=== PATIENT | male | born 1970 | race Hispanic/Latino ===

== ENCOUNTER 2024-05-04 09:14 | Emergency (ER) | payer BC ==
[~2024-05-04] VITALS: Ht 180.3 cm; Wt 98.5 kg
[2024-05-04] MEDS ORDERED: hydrALAZine 20MG/ML VIAL IM ONE (09:30)
[2024-05-04 09:44] LABS: BASOPHILS # (AUTO) 0.02 K/uL (0.00-0.20); BASOPHILS % (AUTO) 0.2 % (0.0-5.0); EOSINOPHILS # (AUTO) 0.09 K/uL (0.00-0.70); EOSINOPHILS % (AUTO) 0.8 % (0.0-8.0); IMMATURE GRANULOCYTE ABSOLUTE 0.04 K/uL (0-1); LYMPHOCYTES # (AUTO) 1.2 K/uL (1.0-4.8); LYMPHOCYTES % (AUTO) 10.1 % (21.0-51.0); MEAN CORPUSCULAR HEMOGLOBIN 28.7 pg (27.0-33.0); MEAN CORPUSCULAR HGB CONC 34.8 g/dL (32.0-36.0); MEAN CORPUSCULAR VOLUME 82.4 fL (79-99); MONOCYTES # (AUTO) 0.6 K/uL (0.1-1.0); MONOCYTES % (AUTO) 5.6 % (3.0-13.0); NEUTROPHILS # (AUTO) 9.5 K/uL (1.8-7.7); PLATELET COUNT (AUTO) 260 K/uL (130-400); RED BLOOD CELL COUNT(AUTO) 5.34 MIL/uL (4.50-6.20); WHITE BLOOD COUNT (AUTO) 11.5 K/uL (4.8-10.8)
[2024-05-04] MEDS: ondanSETRON 4MG INJ IVP ONE (09:47)
[2024-05-04] MEDS: hydrALAZine 20MG/ML VIAL IV ONE ×2 (09:48→12:52)
[2024-05-04] MEDS: ondanSETRON 4MG INJ ONE (09:48)
[2024-05-04 09:55] LABS: ALBUMIN 3.4 g/dL (3.5-5.0); BILIRUBIN,TOTAL 1.1 mg/dL (0.2-1.0); POTASSIUM 3.1 mmol/L (3.5-5.1); TOTAL PROTEIN, SERUM 7.3 g/dL (6.0-8.3)
[2024-05-04 10:13] LABS: COVID19 (SARS ANTIGEN RAPID) PRESUMPTIVE NEGATIVE (NEGATIVE); INFLUENZA TYPE A Negative For Type A (NEGATIVE); INFLUENZA TYPE B Negative For Type B (NEGATIVE)
[2024-05-04 10:14] LABS: B-TYPE NATRIURETIC PEPTIDE 1660 pg/mL (0-100)
[2024-05-04] MEDS: guaiFENesin SUGAR-FREE 100 MG/5 ML UDCUP PO ONE (10:20)
[2024-05-04 10:26] VITALS: PULSE 86; RESP 20
[2024-05-04] MEDS: IpraTROPium/alBUTERol SULFATE 3 ML SOLUTION IH ONE (10:26)
[2024-05-04] MEDS: PoTASSium chloRIDE 20MEQ ER 20 MEQ ERTAB PO ONE (11:05)
[2024-05-04] MEDS: LACTATED RINGERS 1000ML 1,000 ML IV ONE (11:06)
[2024-05-04 11:36] LABS: APPEARANCE,URINE CLEAR (CLEAR); BILIRUBIN,URINE NEGATIVE (NEGATIVE); COLOR,URINE LIGHT-YELLOW (YELLOW); GLUCOSE, URINE (UA) 300 mg/dL (NEGATIVE); KETONES,URINE NEGATIVE (NEGATIVE); LEUKOCYTE ESTERASE ,URINE NEGATIVE Leu/uL (NEGATIVE); NITRATE,URINE NEGATIVE (NEGATIVE); OCCULT BLOOD,URINE SMALL (NEGATIVE); PH,URINE 6.5 (5.0-8.0); PROTEIN,URINE 100 mg/dL (NEGATIVE); UROBILINOGEN,URINE 0.2 mg/dL (0.2-1.0)
[2024-05-04 11:42] LABS: AMPHET/METH SCREEN,URINE NEGATIVE (NEGATIVE); BARBITURATE SCREEN, URINE NEGATIVE (NEGATIVE); BENZODIAZEPINES SCREEN,URINE NEGATIVE (NEGATIVE); CANNABINOID SCREEN,URINE POSITIVE (NEGATIVE); COCAINE SCREEN,URINE POSITIVE (NEGATIVE); OPIATE SCREEN,URINE NEGATIVE (NEGATIVE); PHENCYCLIDINE SCREEN,URINE NEGATIVE (NEGATIVE)
[2024-05-04] MEDS: cefTRIAXone 1G VIAL IVPB ONE (12:02)
[2024-05-04 12:05] LABS: ADD UA MICROSCOPIC YES
[2024-05-04] MEDS ORDERED: AZIT500T4 PO (12:11)
[2024-05-04 12:15] LABS: WBC,URINE 0-1 /HPF (0-1)
[2024-05-04] MEDS: [UNRECOGNIZED DRUG - OTHER] IVPB ONE (12:31)
[2024-05-04] MEDS: AZITHROMYCIN 500 MG IVPB ONE (12:31)
[2024-05-04] MEDS ORDERED: AMLO10TA4 PO (12:44)
[2024-05-04 13:29] VITALS: BP 156/97; PULSE 95; RESP 20; TEMP 97.9; O2SAT 98
== END 2024-05-04 13:45 | disposition home or self-care (01) ==
LOC: EDH 09:14
DX: T40.5X1A Poisoning by cocaine, accidental (unintentional), initial encounter (principal); J68.0 Bronchitis and pneumonitis due to chemicals, gases, fumes and vapors; R11.2 Nausea with vomiting, unspecified; R79.89 Other specified abnormal findings of blood chemistry; F14.10 Cocaine abuse, uncomplicated; F12.10 Cannabis abuse, uncomplicated; E11.9 Type 2 diabetes mellitus without complications; I10 Essential (primary) hypertension; Z20.822 Contact with and (suspected) exposure to COVID-19; Z79.899 Other long term (current) drug therapy; Z91.148 Patient's other noncompliance with medication regimen for other reason
CPT/HCPCS: 99284; 96365; 96375; 71045; 96367; 96361; 87426; 84484 ×2; 80053; 83880; 80305; 85025; 87804 ×2; 81001; 36415; 96376; 93005 ×2; 94640; J7120; J0360 ×2; J0696; J2405; J0456

== ENCOUNTER 2024-11-28 10:57 | Emergency (ER) | payer BC ==
[~2024-11-28] VITALS: Ht 180.3 cm; Wt 104.3 kg
[~2024-11-28 10:57] MED LIST: AMLO-915 PO; AZIT500T4 PO
--- NOTE | 2024-11-28 11:13 | ERN ---
ED Note History of Present Illness Stated Complaint: DIZZYNESS,LIGHTHEADED Chief Complaint: Dizzy/Light Headed Time Seen by MD: 10:57 Dictation: PATIENT IS A 53-YEAR-OLD MALE COMING IN TODAY WITH SUDDEN ONSET OF SEVERE DIZZINESS VERTIGO, STATES HE FEELS NUMBNESS TO HIS FOREHEAD AND VERY LIGHTHEADED ONSET 16 30 YESTERDAY. HE STATES HE WAS WATCHING TV WHEN HE STARTED TO GET UP AND HE FELT THE SUDDEN ONSET OF THE WEAKNESS SAID HE WAS UNABLE TO DRIVE AND COULD BARELY WALK. HE IS NOTED TO BE VERY UNSTEADY ON HIS FEET, GAIT IS STEADY PATIENT HAS A DIVERGENT GAZE TO THE RIGHT. Allergies: Coded Allergies: No Known Drug Allergies (Unverified Allergy, Unknown, 05/04/24) Home Meds Active Scripts Amlodipine Besylate (Norvasc) 10 Mg Tablet, 10 MG PO AM for 10 Days, #10 TAB Prov:RUSSELL BOYER MD 05/04/24 Azithromycin (Azithromycin) 500 Mg Tablet, 500 MG PO BID for 5 Days, #10 TAB Prov:RUSSELL BOYER MD 05/04/24 Past Medical History Past Medical History: Diabetes-Type II, Hypertension Surgical History: None RN Note Reviewed/Agreed w/PFSH: Yes Review of System Dictation CONSTITUTIONAL: NEGATIVE EXCEPT FOR HPI HEAD/FACE: NEGATIVE EXCEPT FOR HPI EENT: NEGATIVE EXCEPT FOR HPI RESPIRATORY: NEGATIVE EXCEPT FOR HPI GASTROINTESTINAL/ABDOMINAL: NEGATIVE EXCEPT FOR HPI GENITOURINARY: NEGATIVE EXCEPT FOR HPI MUSCULOSKELETAL: NEGATIVE EXCEPT FOR HPI INTEGUMENTARY: NEGATIVE EXCEPT FOR HPI NEUROLOGICAL/PSYCH: NEGATIVE EXCEPT FOR HPI DIZZINESS/VERTIGO HEMATOLOGIC/LYMPHATIC: NEGATIVE EXCEPT FOR HPI ALL SYSTEMS NEGATIVE, EXCEPT NOTED ABOVE. 13 POINT REVIEW OF SYSTEMS ASSESSED AND ALL NEGATIVE EXCEPT FOR ABOVE. Initial Vital Sign VS Vital Signs Date Time Temp Pulse Resp B/P (MAP) Pulse Ox O2 Delivery O2 Flow Rate FiO2 11/28/24 11:00 97.9 87 16 230/141 100 Room Air 0 11/28/24 11:45 21 Physical Exam Dictation VITAL SIGNS REVIEWED GENERAL APPEARANCE: ALERT, ORIENTED X 3, NO ACUTE DISTRESS, WELL DEVELOPED, NOURISHED. HEAD AND FACE: NON-TRAUMATIC. EYES: PERRL, PINK CONJUNCTIVAS, EYELID NO TRAUMA, ANTERIOR CHAMBER WITH ARCUS SENILIS. DIVERGENT GAZE TO THE RIGHT EARS: PINNAS INTACT AND NO SIGNS OF TRAUMA OR ERYTHEMA EAR CANALS CLEAR AND NO DISCHARGE TM NO ERYTHEMA NOSE: NO DISCHARGE, NO BLEEDING. OROPHARYNX: MOUTH NORMAL, TONGUE PINK, PHARYNX CLEAR,NO ERYTHEMA, TONSILS NO EXUDATES, NO ABSCESSES NOTED, MUCOUS MEMBRANE MOIST NECK: SUPPLE, NON-TENDER, NO THYROMEGALY, NO MASSES, NO JVD, NO BRUITS BREAST:DEFERRED CHEST:NO TENDERNESS, NO CREPITUS, NO PARADOXICAL MOVEMENT, NO RETRACTIONS LUNGS:CLEAR, WELL-VENTILATED, SYMMETRIC, NO RALES, NO WHEEZING, NO RHONCHI, NO STRIDOR, GOOD BREATH SOUNDS BILATERALLY HEART: REGULAR RATE, REGULAR RHYTHM, NO MURMUR, NO GALLOPS VASCULAR: NO PERIPHERAL EDEMA, ABDOMEN: SOFT, POSITIVE BOWEL SOUNDS, NONDISTENDED, NO GUARDING, NONTENDER, NO REBOUND, NO MASSES NO HEPATOMEGALY, NO SPLENOMEGALY, NO GRACIA'S SIGN, NO HERNIAS. RECTAL: DEFERRED GENITAL: DEFERRED NEUROLOGICAL: NORMAL SPEECH, MOTOR FUNCTION INTACT, SENSORY FUNCTION INTACT DECREASED SENSATION TO THE FOREHEAD. MUSCULOSKELETAL: NECK NONTENDER, FULL RANGE OF MOTION, BACK NONTENDER, FULL RANGE OF MOTION, EXTREMITIES: NONTENDER, FULL RANGE OF MOTION SKIN: COLOR PINK, DRY, NO TURGOR, NO RASH, NO LACERATIONS, NO ABRASIONS, NO CONTUSIONS. LYMPHATIC: DEFERRED Results (Laboratory/Radiology) Laboratory/Radiology Laboratory Tests Test 11/28/24 11:43 11/28/24 13:04 White Blood Count 8.4 K/uL (4.8-10.8) Red Blood Count 5.44 MIL/uL (4.50-6.20) Hemoglobin 16.1 g/dL (14.0-18.0) Hematocrit 46.9 % (42-54) Mean Corpuscular Volume 86.2 fL (79-99) Mean Corpuscular Hemoglobin 29.6 pg (27.0-33.0) Mean Corpuscular Hemoglobin Concent 34.3 g/dL (32.0-36.0) Red Cell Distribution Width 13.2 % (11.0-15.5) Platelet Count 262 K/uL (130-400) Mean Platelet Volume 9.2 fL (7.5-10.5) Immature Granulocyte % (Auto) 0.4 % (0-1) Neutrophils (%) (Auto) 71.1 % (40.0-77.0) Lymphocytes (%) (Auto) 19.2 % (21.0-51.0) L Monocytes (%) (Auto) 7.0 % (3.0-13.0) Eosinophils (%) (Auto) 2.1 % (0.0-8.0) Basophils (%) (Auto) 0.2 % (0.0-5.0) Neutrophils # (Auto) 6.0 K/uL (1.8-7.7) Lymphocytes # (Auto) 1.6 K/uL (1.0-4.8) Monocytes # (Auto) 0.6 K/uL (0.1-1.0) Eosinophils # (Auto) 0.18 K/uL (0.00-0.70) Basophils # (Auto) 0.02 K/uL (0.00-0.20) Absolute Immature Granulocyte (auto 0.03 K/uL (0-1) Nucleated Red Blood Cells 0.0 % (0.0-0.19) Prothrombin Time 10.6 SEC (9.6-11.6) Prothromb Time International Ratio 1.00 (0.85-1.15) Activated Partial Thromboplast Time 28.1 SEC (26.3-35.5) Sodium Level 139 mmol/L (136-145) Potassium Level 3.5 mmol/L (3.5-5.1) Chloride Level 104 mmol/L (101-111) Carbon Dioxide Level 24 mmol/L (21-32) Blood Urea Nitrogen 35 mg/dL (7-18) H Creatinine 3.3 mg/dL (0.5-1.3) H Glomerular Filtration Rate Calc 21 mL/min (>90) Random Glucose 116 mg/dL (70-105) H Total Calcium 9.0 mg/dL (8.5-10.1) Total Creatine Kinase 62 U/L (21-232) Troponin I High Sensitivity 189 ng/L (4-75) *H B-Type Natriuretic Peptide 610 pg/mL (0-100) H Urine Color COLORLESS (YELLOW) Urine Appearance CLEAR (CLEAR) Urine pH 5.5 (5.0-8.0) Urine Specific [place] 1.007 (1.001-1.031) Urine Protein 50 mg/dL (NEGATIVE) H Urine Glucose (UA) NEGATIVE mg/dL (NEGATIVE) Urine Ketones NEGATIVE mg/dL (NEGATIVE) Urine Occult Blood +- (TRACE) (NEGATIVE) H Urine Nitrate NEGATIVE (NEGATIVE) Urine Bilirubin NEGATIVE mg/dL (NEGATIVE) Urine Urobilinogen 0.2 mg/dL (0.2-1.0) Urine Leukocyte Esterase NEGATIVE Mei/uL Labs Reviewed?: Yes EKG Comment: EKG SINUS RHYTHM/HEART RATE 74/AXIS NORMAL/T-WAVE FLATTENING LEADS ONE AND TWO ED Course ED Course Orders Procedure Category Date Status Time Nothing By Mouth DIET 11/28/24 Transmitted Lunch Cbc With Differential LAB 11/28/24 Complete 11:09 Chest 1vw RAD 11/28/24 Resulted 11:09 12 Lead Ekg Tracing- EKG 11/28/24 Resulted Technical 11:09 Creatine Kinase, Total LAB 11/28/24 Complete 11:09 Troponin I High LAB 11/28/24 Complete Sensitivity 11:09 Urinalysis Profile LAB 11/28/24 In Process 11:09 B-Type Natriuretic LAB 11/28/24 Complete Peptide 11:09 Bedside Glucose CPOE 11/28/24 Transmitted Fingerstick 11:09 Basic Metabolic Panel LAB 11/28/24 Complete 11:09 Pt And Ptt LAB 11/28/24 Complete 11:09 Ct Head/Brain W/O CT 11/28/24 Resulted Contrast 11:27 *Nursing CPOE 11/28/24 Transmitted Communication: 11:52 Aspirin 325mg Tab PHA 11/28/24 Complete (Aspirin 325mg Tab) 12:00 Drug Screen Urine LAB 11/28/24 Logged 13:09 Current Medications Medications (Trade) Dose Ordered Sig/Eli Route PRN Reason Start Time Stop Time Status Last Admin Dose Admin Aspirin (Aspirin 325mg Tab) 325 mg ONCE ONCE PO 11/28/24 12:00 11/28/24 12:01 DC 11/28/24 13:13 Vital Signs Date Time Temp Pulse Resp B/P (MAP) Pulse Ox O2 Delivery O2 Flow Rate FiO2 11/28/24 11:45 97.9 87 16 198/114 100 Room Air* 0 21 11/28/24 11:00 97.9 87 16 230/141 100 Room Air 0 1145/RADIOLOGIST'S SPOKE WITH ., CT DEMONSTRATES LARGE OCCIPITAL STROKE. CALL FOR NEURORADIOLOGY CONSULT. 1200/SPOKE WITH TELE NEUROLOGIST, SAYED, HE SAID JUST DO STROKE WORKUP GIVEN ASPIRIN NOW AND HE WOULD AGREED TO CONSULT PATIENT VIA TELEMEDICINE 1325/DR BENAVIDES SPOKE WITH THE TRANSFER CENTER AT [facility] AND PATIENT HAS BEEN TENTATIVELY ACCEPTED. I APPROACH PATIENT TO LET HIM KNOW HE WILL BE TRANSFERRED TO A HIGHER LEVEL OF CARE WITH NEUROLOGY CARE HE HAS A HIS BROTHER AT THE BEDSIDE AND SAID I AM LEAVING ON WANT TO GO BECAUSE I AM VERY HUNGRY AND WHEN I AM FINISHED I WILL GO OVER TO [facility] MYSELF. I EXPLAINED TO PATIENT THAT HE HAD HAD A LARGE STROKE AND THAT THERE IS A REAL POSSIBILITY OF FURTHER DETERIORATION OR HE SAID HE UNDERSTOOD, HIS BROTHER IS AT THE BEDSIDE AND HE AGREE WITH THE HIM. PATIENT ALERT AND ORIENTED X4 SPEECH IS CLEAR. I ASKED PATIENT SIGNED OUT AGAINST MEDICAL ADVICE. HEART Score Response (Comments) Value Age: 45-65yrs (+1) 1 Risk Factors: 1-2 risk factors (+1) 1 Initial Troponin: 1-3x Normal Limit (+1) 1 Total 3 Medical Decision Making MDM MDM: DIFFERENTIAL DIAGNOSIS: CVA/ACS/AMI/VERTIGO/ELECTROLYTE IMBALANCE/ARRHYTHMIA RATIONALE: TESTS CONSIDERED AND ORDERED SECONDARY TO SHARED DECISION MAKING INCLUDE: CT/LABS/EKG PREVIOUS OUTSIDE RECORDS REVIEWED: OLD ER VISITS. RISK OF COMPLICATION AND/OR MORBIDITY OR MORTALITY OF PATIENT MANAGEMENT: HIGH MEDICATIONS-PER MEDICATION RECONCILIATION NEED FOR HOSPITALIZATION: PATIENT DOES NOT MEET CRITERIA FOR HOSPITALIZATION. TRANSFER WAS ARRANGED TO A HIGHER LEVEL OF CARE, [facility]. PATIENT IS SIGNED OUT AGAINST MEDICAL ADVICE NEED FOR EMERGENCY MAJOR/MINOR SURGERY: NO THERE ARE NO SOCIAL CONCERNS WITH THIS PATIENT. PRESCRIPTION DRUG MANAGEMENT PRESCRIPTIONS WILL INCLUDE SYMPTOMATIC CARE PATIENT'S PRIOR EXTERNAL MEDICAL RECORDS FROM OTHER ER VISITS WERE REVIEWED BY ME INDICATED. PRIOR TESTING AND RESULTS FROM PREVIOUS VISITS WERE REVIEWED. PRIOR TESTS WERE TAKEN INTO ACCOUNT WITH MEDICAL DECISION MAKING AND RESOURCE UTILIZATION, INDEPENDENT HISTORIAN/HISTORIANS WERE USED TO OBTAIN COMPLETE MEDICAL HISTORY. I INDEPENDENTLY INTERPRETED THE TEST THAT WERE PERFORMED, RESULTS WERE REVIEWED BY ME AND CONSIDERED FINDINGS ON RADIOLOGY IF ORDERED. MEDICAL MANAGEMENT AND EXAMINATION INTERPRETATION DISCUSSIONS WERE HAD BY ME WITH OTHER QUALIFIED HEALTHCARE PROFESSIONALS INDICATED FOR THE PATIENT'S CARE. DX & DISP Disposition: AMA Departure Impression: Primary Impression: Occipital stroke Additional Impressions: [id number] kidney injury, Elevated troponin level, Elevated brain natriuretic peptide (BNP) level Condition: Stable Referrals: SELF,REFERRAL (PCP) Time of Disposition: 13:35 I have reviewed the case, and I agree with, Diagnosis and Plan JOSÉ MIGUEL AVERY NP Nov 28, 2024 11:13
[2024-11-28 11:50] LABS: BASOPHILS # (AUTO) 0.02 K/uL (0.00-0.20); BASOPHILS % (AUTO) 0.2 % (0.0-5.0); EOSINOPHILS # (AUTO) 0.18 K/uL (0.00-0.70); EOSINOPHILS % (AUTO) 2.1 % (0.0-8.0); HEMATOCRIT 46.9 % (42-54); IMMATURE GRANULOCYTE ABSOLUTE 0.03 K/uL (0-1); LYMPHOCYTES # (AUTO) 1.6 K/uL (1.0-4.8); LYMPHOCYTES % (AUTO) 19.2 % (21.0-51.0); MEAN CORPUSCULAR HEMOGLOBIN 29.6 pg (27.0-33.0); MEAN CORPUSCULAR HGB CONC 34.3 g/dL (32.0-36.0); MEAN CORPUSCULAR VOLUME 86.2 fL (79-99); MONOCYTES # (AUTO) 0.6 K/uL (0.1-1.0); NEUTROPHILS % (AUTO) 71.1 % (40.0-77.0); PLATELET COUNT (AUTO) 262 K/uL (130-400); RED BLOOD CELL COUNT(AUTO) 5.44 MIL/uL (4.50-6.20); RED CELL DISTRIBUTION WIDTH 13.2 % (11.0-15.5); WHITE BLOOD COUNT (AUTO) 8.4 K/uL (4.8-10.8)
--- NOTE | 2024-11-28 11:51 | EKG ---
[facility] Test Date: 2024-11-28 Test Time: 11:25:42 Pat Name: GLENDY ALVAREZ Department: ED Room: Gender: M Head Chef: [id number] : 1970 Requested By: JOSÉ MIGUEL AVERY Order Number: [id number] Reading MD: Marisol Benson Measurements Intervals [place] Rate: 74 P: 249 WA: 156 QRS: 85 QRSD: 102 T: 103 QT: 423 QTc: 471 Interpretive Statements Sinus rhythm Nonspecific T abnormalities, lateral leads Compared to ECG 05/04/2024 11:33:50 Ectopic atrial rhythm now present Sinus rhythm no longer present T-wave abnormality still present Electronically Signed On 11-28-2024 12:24:05 CDT by Marisol Benson Please click the below link to view image of tracing.
--- NOTE | 2024-11-28 11:58 | HMCIMG ---
CHEST 1VW HISTORY: Chest COMPARISON: 05/04/2024 FINDINGS: A frontal projection of the chest was obtained. No acute pulmonary infiltrates is seen. The heart is borderline enlarged. Prominent interstitial markings are seen. Healing fracture is seen of right clavicle. No evidence of aortic calcification is seen. IMPRESSION: 1. No acute pulmonary infiltrate is seen.
[2024-11-28 11:59] LABS: PROTHROMBIN TIME 10.6 SEC (9.6-11.6)
[2024-11-28 12:00] LABS: PARTIAL THROMBOPLASTIN TIME 28.1 SEC (26.3-35.5)
--- NOTE | 2024-11-28 12:00 | HMCIMG ---
CT HEAD/BRAIN W/O CONTRAST HISTORY: Code stroke COMPARISON: None TECHNIQUE: Multiple sequential axial images of the head were obtained from the base of the skull through vertex. Patient was not given contrast through intravenous route. FINDINGS: The ventricles and extraventricular CSF spaces are dilated consistent with cerebral atrophy. Nonspecific white matter changes seen. Hypodense area is seen in the right parietal occipital lobe consistent with subacute infarct and a proper clinical setting. There is no midline shift, mass effect or herniation. No acute intracranial bleed is seen. Visualized portion of the paranasal sinuses are grossly within normal limits. IMPRESSION: 1. No acute intracranial bleed is seen. 2. Atrophy with white matter changes. Hypodense area is seen in the right parietal occipital lobe consistent with subacute infarct and a proper clinical setting. Case was discussed with the referring physician. CT was performed with one or more following dose reduction techniques: automated exposure control, adjustment of the mA and kv according to patient's size, or use of a iterative reconstruction technique.
[2024-11-28 12:01] LABS: CREATININE 3.3 mg/dL (0.5-1.3); POTASSIUM 3.5 mmol/L (3.5-5.1)
[2024-11-28 12:15] LABS: B-TYPE NATRIURETIC PEPTIDE 610 pg/mL (0-100)
[2024-11-28] MEDS: ASPIRIN 325MG TAB PO ONE (13:13)
[2024-11-28 13:16] LABS: APPEARANCE,URINE CLEAR (CLEAR); BILIRUBIN,URINE NEGATIVE (NEGATIVE); COLOR,URINE COLORLESS (YELLOW); GLUCOSE, URINE (UA) NEGATIVE (NEGATIVE); KETONES,URINE NEGATIVE (NEGATIVE); LEUKOCYTE ESTERASE ,URINE NEGATIVE Leu/uL (NEGATIVE); NITRATE,URINE NEGATIVE (NEGATIVE); PH,URINE 5.5 (5.0-8.0); PROTEIN,URINE 50 mg/dL (NEGATIVE); UROBILINOGEN,URINE 0.2 mg/dL (0.2-1.0)
[2024-11-28 13:25] VITALS: BP 192/104; PULSE 84; RESP 16; TEMP 97.9; O2SAT 100
[2024-11-28 13:25] LABS: ADD UA MICROSCOPIC YES; BACTERIA,URINE None Seen /HPF (None Seen); RBC,URINE 0-1 /HPF (0-1); WBC,URINE 0-1 /HPF (0-1)
[2024-11-28 13:28] LABS: MUCUS,URINE Rare LPF (None Seen); SQUAMOUS EPITHELIAL CELL,UR Rare /HPF (0-2)
[2024-11-28 14:07] LABS: AMPHET/METH SCREEN,URINE NEGATIVE (NEGATIVE); BARBITURATE SCREEN, URINE NEGATIVE (NEGATIVE); BENZODIAZEPINES SCREEN,URINE NEGATIVE (NEGATIVE); CANNABINOID SCREEN,URINE POSITIVE (NEGATIVE); COCAINE SCREEN,URINE POSITIVE (NEGATIVE); OPIATE SCREEN,URINE NEGATIVE (NEGATIVE); PHENCYCLIDINE SCREEN,URINE NEGATIVE (NEGATIVE)
--- NOTE | 2024-11-28 14:34 | CONS ---
CONSULT NOTE: [place] [facility] Note # Demographics Consult Type: Acute Stroke Level 1 (0-4.5 hrs) Patient Location: Emergency Room First Name: GLENDY BASSETT Last Name: ANTONIO Date of : 1970 Age: 53 Gender: Male Facility: [facility] Time of Initial Page (Central Time): 11/28/2024 11:54 Time of Return Call (Central Time): 11/28/2024 11:54 # HPI History: LKN 1630pm yesterday p/w dizziness, vertigo. trouble walking # Scores Level of Consciousness 1a: [0] = Alert; keenly responsive LOC Questions 1b: [0] = Answers both questions correctly LOC Commands 1c: [0] = Performs both tasks correctly Best Gaze 2: [0] = Normal Facial Palsy 4: [0] = Normal symmetrical movements Motor Arm Left 5a: [0] = No drift Motor Arm Right 5b: [0] = No drift Motor Leg Left 6a: [0] = No drift Motor Leg Right 6b: [0] = No drift Limb Ataxia 7: [0] = Absent Sensory 8: [0] = Normal Best Language 9: [0] = No aphasia Dysarthria 10: [0] = Normal NIHSS Total: 0 # Exam Additional Neurologic Exam: unable to check for neglect and do visual field testing as pt can't see me on the screen and no one available at bedside to help with assessment. # PMH-FH- Past Medical History: - hypertension Social History: - non-smoker - non-drinker - THC report h/o cocaine Medications: - No antithrombotics or anticoagulants reported # Data Time Head CT personally read by me (Central Time): 11/28/2024 11:[address]: - no bleed - preliminarily reviewed by me, please refer to radiology read for official reading right parietal occipital subacute to acute infarct. also ?hypodensity in left cerebellum # Assessment Impression: - Ischemic Stroke (Acute) # Plan Thrombolytic/Intervention: NOT IV Thrombolysis or IA Intervention candidate Thrombolytic Exclusion: > 4.5 hours Intraarterial Exclusion: - unfavorable imaging/hypodensity Target Blood Pressure: - SBP < 220 - DBP < 120 Labs: - B12 - hemoglobin A1c - lipid panel - TSH - urine drug screen hypercoagulable w/u if unable to find etiology of str Imaging: (urgency: STAT): - CT Angiogram Head and CT Angiogram Neck AND call back with results if abnormal Imaging: (urgency: routine): - MRI Brain without contrast Diagnostic Test: - echo with bubble study Therapy/Evaluation: - NPO until swallow evaluation - PT/OT evaluation - speech/swallow consultation Medication: - start statin with goal of LDL < 70 - aspirin 81 mg daily may need to adjust antithrombotics based on w/u DVT Prophylaxis: - SCD - chemical DVT prophylaxis Other: - If patient has any neurological deterioration please call me back immediately - telemetry monitoring - I have discussed my recommendations with the referring provider - permissive hypertension - will need event monitor or loop recorder as outpatient if atrial fibrillation not found as inpatient # Logistics Attestation of consult completion: The patient is located at: [facility]. Facility staff participated in the visit. I performed this telemedicine visit from my offsite office utilizing interactive 2 way audio and visual telecommunication technology. Total time spent in telemedicine encounter: I spent 25 minutes reviewing clinical data and/or imaging, obtaining history, examining the patient, communicating with the onsite care team, and in preparation of this report. # Demographics First Name: GLENDY BASSETT Last Name: ANTONIO Facility: [facility] JACKIE HASSAN MD Nov 28, 2024 14:34
== END 2024-11-28 13:54 | disposition left against medical advice (07) ==
LOC: EDH 10:57
DX: I63.89 Other cerebral infarction (principal); I12.9 Hypertensive chronic kidney disease with stage 1 through stage 4 chronic kidney disease, or unspecified chronic kidney disease; E11.22 Type 2 diabetes mellitus with diabetic chronic kidney disease; N18.9 Chronic kidney disease, unspecified; R79.89 Other specified abnormal findings of blood chemistry; Z79.899 Other long term (current) drug therapy
CPT/HCPCS: 36415; 70450; 71045; 80048; 80305; 81001; 82550; 82948; 83880; 84484; 85025; 85610; 85730; 93005; 99284